=== PATIENT | male | born 1990 | race Two or more races ===

== ENCOUNTER 2020-03-19 13:11 | Emergency (ER) | payer BC, OTHER ==
[~2020-03-19] VITALS: Ht 180.3 cm; Wt 88.5 kg
[2020-03-19 13:40] VITALS: BP 126/74
--- NOTE | 2020-03-19 14:27 | Emergency Room Report ---
History of Present Illness General Chief Complaint: Pain Source: Patient Present Illness HPI 29-year-old male with no significant past medical history here complaining left heel pain x2 days. Patient reports that about 3 weeks ago a piece of metal fell on his left foot right at first metatarsal bone however was not painful there was ecchymosis. Ecchymosis no longer there. Patient has full range of motion of the affected side. Rates the pain 3 out of 10 without radiation. Reports the heel pain started 2 days ago and is worse when waking up in the morning. Patient is on his feet for the whole day at work. Has not taken medication for symptom relief. Denies tingling and numbness. No calf tenderness noted. Denies all other injuries. Allergies: Coded Allergies: No Known Allergies (Unverified , 03/19/20) COVID-19 Screening Contact w/high risk pt: No Recent Travel to affected area: No Experienced COVID-19 symptoms?: No COVID-19 Testing performed JIG BUILDER: No Patient History Past Medical History: see triage record Past Surgical History: none Pertinent Family History: none Immunizations: UTD Reviewed Nursing Documentation: PMH: Agreed; PSxH: Agreed Nursing Documentation-PMH Past Medical History: No Stated History Review of Systems All Other Systems: negative except mentioned in HPI Physical Exam Vital Signs Date Time Temp Pulse Resp B/P (MAP) Pulse Ox O2 Delivery O2 Flow Rate FiO2 03/19/20 13:15 98.4 69 20 122/79 (93) 96 Room Air Sp02 EP Interpretation: reviewed, normal General Appearance: no apparent distress, alert, GCS 15, non-toxic Head: normocephalic, atraumatic Eyes: bilateral eye normal inspection, bilateral eye PERRL ENT: hearing grossly normal, normal pharynx, no angioedema, normal voice Neck: full range of motion, supple/symm/no masses Respiratory: chest non-tender, lungs clear, normal breath sounds, speaking full sentences Cardiovascular #1: regular rate, rhythm, no edema Cardiovascular #2: 2+ dorsalis pedis (R), 2+ dorsalis pedis (L) Gastrointestinal: non tender, soft Rectal: deferred Musculoskeletal: back normal, no calf tenderness, no lower extremity edema, non -tender Neurologic: alert, motor strength/tone normal, oriented x3, sensory intact, responsive, speech normal Psychiatric: judgement/insight normal, memory normal, mood/affect normal, no suicidal/homicidal ideation Skin: no rash Lymphatic: no adenopathy Medical Decision Making PA Attestation All my diagnosis and treatment plans were reviewed ad discussed with my supervising physician Dr. Watson Diagnostic Impression: Primary Impression: Fracture of foot with delayed healing Additional Impression: Heel pain ER Course 29-year-old male with no significant past medical history here complaining left heel pain x2 days. Patient reports that about 3 weeks ago a piece of metal fell on his left foot right at first metatarsal bone however was not painful there was ecchymosis. Ecchymosis no longer there. Patient has full range of motion of the affected side. Rates the pain 3 out of 10 without radiation. Reports the heel pain started 2 days ago and is worse when waking up in the morning. Patient is on his feet for the whole day at work. Has not taken medication for symptom relief. Denies tingling and numbness. No calf tenderness noted. Denies all other injuries. Ddx considered but are not limited to: foot fracture, foot sprain, foot contusion, foot strain Vital signs: are WNL, pt. is afebrile H&PE are most consistent with: Healing fracture foot, heel pain probably plantar fasciitis ORDERS: foot Xray, ibuprofen, Voltaren gel ED INTERVENTIONS: Rod wrap DISCHARGE: At this time pt. is stable for d/c to home. Will provide printed patient care instructions, and any necessary prescriptions. Care plan and follow up instructions have been discussed with the patient prior to discharge. It is too late to explain the foot is 3 weeks past fracture, heel pain is either secondary to pain radiation from the fracture site or due to plantar fasciitis. Patient follow-up primary doctor and redevelopment specialist, avoid strenuous physical activity, if worsening symptoms return to the emergency room Other X-Ray Diagnostic Results Other X-Ray Diagnostic Results : X-Ray ordered: left foot # of Views/Limited Vs Complete: 3 View Indication: Pain EP Interpretation: Yes CORTNEY Xray: Interpretation reviewed, by supervising MD, and agrees with findings. Interpretation: no dislocation, other - Old healing fracture left metatarsal bone Impression: No acute disease Electronically Signed by: Preethi Lebron PA-C Last Vital Signs Date Time Temp Pulse Resp B/P (MAP) Pulse Ox O2 Delivery O2 Flow Rate FiO2 03/19/20 13:40 98.4 84 19 126/74 98 Room Air Disposition: HOME, SELF-CARE Condition: Stable Scripts Diclofenac Sodium (VOLTAREN) 100 Gm Gel..gram. 2 GM TP TID, #100 GM Prov: Preethi Lemus 03/19/20 Ibuprofen* (MOTRIN*) 600 Mg Tablet 600 MG ORAL Q6H PRN for For Pain, #30 TAB 0 Refills Prov: Preethi Lemus 03/19/20 Referrals: [facility],REFERRING (PCP) Patient Instructions: Metatarsal Fracture, Plantar Fasciitis With Rehab- [facility] Additional Instructions: Follow-up with redevelopment specialist, take medication as directed, avoid strenuous physical activity, if worsening symptoms return to the emergency room Preethi Lemus Mar 19, 2020 14:27
[2020-03-19] MEDS ORDERED: VOLTAREN100 G1 TP (14:29)
[2020-03-19] MEDS ORDERED: IBUPROFEN600 M1 ORAL (14:29)
[2020-03-19 14:44] VITALS: BP 122/75
--- NOTE | 2020-03-19 18:56 | Diagnostic Imaging Report ---
Indication: Trauma, pain Technique: 3 views left foot Comparison: none Findings: No acute fractures. No dislocations. The joint spaces are preserved. Impression: Negative
== END 2020-03-19 14:44 | disposition home or self-care (01) ==
LOC: EMR 13:58
DX: S92.302G Fracture of unspecified metatarsal bone(s), left foot, subsequent encounter for fracture with delayed healing (principal); X58.XXXD Exposure to other specified factors, subsequent encounter; M25.572 Pain in left ankle and joints of left foot
CPT/HCPCS: 99283